=== PATIENT | female | born 1970 | race Caucasian/White ===

== ENCOUNTER 2017-09-25 04:02 | Emergency (ER) | payer MEDICAID ==
[~2017-09-25] VITALS: Ht 160 cm; Wt 71.0 kg
[2017-09-25] MEDS ORDERED: NA PHOS,M-B/NA PHOS,DI-BA ENEMA 118ML PR ONE (06:30)
[2017-09-25 06:56] LABS: HEMOGLOBIN. 11.3 g/dL (12.0-16.0); MEAN CORPUSCULAR HEMOGLOBIN 26.1 pg (28.0-32.0); MEAN CORPUSCULAR VOLUME 80.9 fL (81.0-99.0); MEAN PLATELET VOLUME 8.3 fl (7.4-10.4); PLATELET 308 x1000/uL (130-400); RED BLOOD CELL COUNT 4.32 mill/uL (4.2-5.4); RED CELL DISTRIBUTION WIDTH 14.9 % (11.6-14.6)
[2017-09-25 07:08] LABS: CARBON DIOXIDE 26 mEq/L (21-32); CHLORIDE 106 mEq/L (98-107)
[2017-09-25 07:28] LABS: PLATELET ESTIMATE NORMAL
[2017-09-25 08:11] LABS: GLUCOSE URINE NEGATIVE (NEGATIVE); KETONES URINE TRACE (NEGATIVE); LEUKOCYTE ESTERASE URINE 2+ (NEGATIVE); NITRITE URINE NEGATIVE (NEGATIVE); OCCULT BLOOD URINE 3+ (NEGATIVE); PROTEIN URINE 2+ (NEGATIVE); SPECIFIC GRAVITY URINE 1.017 (1.005-1.030); UROBILINOGEN URINE 0.2 E.U./dL (0.2-1.0)
[2017-09-25 08:15] LABS: CLARITY URINE TURBID (CLEAR)
[2017-09-25 08:17] LABS: COLOR URINE BLOODY (YELLOW)
[2017-09-25] MEDS ORDERED: CEFTRIAXONE SODIUM 1 G/VIAL IV ONE (09:15)
[2017-09-25] MEDS ORDERED: IOHEXOL-300 100 ML BOTTLE ONE (09:44)
[2017-09-25] MEDS ORDERED: CEFTRIAXONE 1 G PREMIX 50 ML IV SCH (10:30)
[2017-09-25 10:51] VITALS: BP 120/81
== END 2017-09-25 11:59 | disposition home or self-care (01) ==
LOC: ER 04:02
DX: K59.00 Constipation, unspecified (principal); N39.0 Urinary tract infection, site not specified; K44.9 Diaphragmatic hernia without obstruction or gangrene
CPT/HCPCS: 36415; 74000; 74177; 80048; 81001; 81025; 85025; 96365; 99285; J0696; Q9967; Z7610

== ENCOUNTER 2019-01-25 22:46 | Emergency (ER) | payer MEDICAID ==
[~2019-01-25] VITALS: Ht 167.6 cm; Wt 69.0 kg
[2019-01-26 00:01] LABS: BASOPHILS % 0.3 % (0.0-2.0); EOSINOPHILS % 0.1 % (0.0-5.0); HEMATOCRIT. 27.8 % (36.0-48.0); HEMOGLOBIN. 8.7 g/dL (12.0-16.0); LYMPHOCYTES % 12.5 % (20.0-50.0); MEAN CORPUSCULAR HEMOGLOBIN 21.5 pg (28.0-32.0); MEAN CORPUSCULAR VOLUME 68.6 fL (81.0-99.0); MEAN PLATELET VOLUME 7.6 fl (7.4-10.4); MONOCYTES % 7.4 % (2.0-8.0); NEUTROPHILS % 79.7 % (40.0-76.0); PLATELET 319 x1000/uL (130-400); RED BLOOD CELL COUNT 4.05 mill/uL (4.2-5.4); RED CELL DISTRIBUTION WIDTH 17.9 % (11.6-14.6)
[2019-01-26 00:14] LABS: CHLORIDE 109 mEq/L (98-107)
[2019-01-26 00:24] LABS: T4 FREE 1.12 ng/dL (0.76-1.46)
[2019-01-26 01:04] LABS: PLATELET ESTIMATE NORMAL
[2019-01-26 03:50] VITALS: BP 102/51
== END 2019-01-26 03:56 | disposition home or self-care (01) ==
LOC: EDBD 22:46 → ER 22:46
DX: D64.9 Anemia, unspecified (principal); F41.9 Anxiety disorder, unspecified; G47.00 Insomnia, unspecified; F32.9 Major depressive disorder, single episode, unspecified
CPT/HCPCS: 36415; 80053; 82962; 84439; 84443; 85025; 93005; 99284; Z7610